=== PATIENT | male | born 1980 | race Caucasian/White ===

== ENCOUNTER 2018-11-16 20:20 | Emergency (ER) | payer BC ==
[2018-11-16 20:41] VITALS: BP 131/72; PULSE 72; RESP 20; TEMP 97.8
[2018-11-16] MEDS ORDERED: MORPHINE SULFATE 4 MG/ML SYRINGE IM STA (20:43)
--- NOTE | 2018-11-16 20:57 | ED ---
Lower Extremity Injury HPI - General Chief Complaint: Extremity Injury, Lower Stated Complaint: Rt foot injury Time Seen by Provider: 11/16/18 20:42 Source: patient Mode of arrival: ambulatory Limitations: no limitations - History of Present Illness Initial Comments: 38-year-old male who denies past medical history presenting today for chief complaint of right calf pain. Patient states that he was attempting to run up a "manageable". When he felt a pop in his right calf. Patient states he thinks his Achilles broke. Patient states that he is able to move at the ankle however he is unable to walk on his toes. Patient states there is pain in his calf. Swelling of the posterior ankle. Patient states he is able to ambulate and weight-bear, patient denies any numbness tingling loss of sensation. Patient denies fall or head injury, patient denies a severe ankle or knee pain he denies pain to palpation of the foot. Remaining review of system negative, patient denies any recent fever, chills, shortness of breath, chest pain, back pain, abdominal pain, nausea or vomiting, numbness or tingling, dysuria or hematuria, constipation or diarrhea, headaches or visual changes, or any other complaints. Upon arrival patient appears well no signs of acute distress. - Related Data Home Medications Medication Instructions Recorded Confirmed No Known Home Medications 11/16/18 11/16/18 Allergies Allergy/AdvReac Type Severity Reaction Status Date / Time No Known Allergies Allergy Verified 11/16/18 20:41 Review of Systems ROS Statement: Those systems with pertinent positive or pertinent negative responses have been documented in the HPI. ROS Other: All systems not noted in ROS Statement are negative. Past Medical History Past Medical History: No Reported History History of Any Multi-Drug Resistant Organisms: None Reported Past Surgical History: No Surgical Hx Reported Past Psychological History: No Psychological Hx Reported Smoking Status: Current every day smoker Past Alcohol Use History: Rare Past Drug Use History: None Reported General Exam - General Exam Comments Initial Comments: General: The patient is awake and alert, in no distress, and does not appear acutely ill. Eye: Pupils are equal, round and reactive to light, extra-ocular movements are intact. No nystagmus. There is normal conjunctiva bilaterally. No signs of icterus. Ears, nose, mouth and throat: There are moist mucous membranes and no oral lesions. Neck: The neck is supple, there is no tenderness or JVD. Cardiovascular: There is a regular rate and rhythm. No murmur, rub or gallop is appreciated. Respiratory: Lungs are clear to auscultation, respirations are non-labored, breath sounds are equal. No wheezes, stridor, rales, or rhonchi. Gastrointestinal: Soft, non-distended, non-tender abdomen without masses or organomegaly noted. There is no rebound or guarding present. No CVA tenderness. Bowel sounds are unremarkable. Musculoskeletal: Normal ROM, no tenderness. Strength 5/5. Sensation intact of the LE equal in comparison b/l. DP pulses equal bilaterally 2+. Anderson sign is not intact. There is bogginess over the Achilles distal attachment site. No palpable cord. Pain to palpation of the mid calf with swelling. No pain to palpation of the forefoot lateral or medial malleolus. Patient is able to fully range at the ankle without difficulty. No pain to palpation of the proximal tibia-fibula. Compartments soft and compressible Neurological: A&O x 3. CN II-XII intact, There are no obvious motor or sensory deficits. Coordination appears grossly intact. Speech is normal. Skin: Skin is warm and dry and no rashes or lesions are noted. Psychiatric: Cooperative, appropriate mood & affect, normal judgment. Limitations: no limitations Course Vital Signs 11/16/18 20:36 Temperature 97.8 F Pulse Rate 72 Respiratory 20 Rate Blood Pressure 131/72 O2 Sat by Pulse 98 Oximetry Medical Decision Making - Medical Decision Making 38-year-old presenting for right calf pain. Physical examination findings consistent with Achilles tendon tear, exam consistent with complete or near complete tear. Pt placed in splint holding foot in slightly plantar flexed position. Pt given RX for crutches and NWB instruction. Patient neurovascularly intact. Patient has no pain to palpation of ankle mortise, foot or knee. Given pain medication emergency department. Pt given orthopedic surgery f/u instruction, to f/u on Monday. Pt verbalized understanding of importance of f/u and NWB. She given starter pack for Tylenol No. 3 patient where all would risk involved denies questions at this time. Case discussed with attending provider Dr. Leyva prior to patient's discharge Disposition Clinical Impression: Achilles tendon rupture Disposition: HOME SELF-CARE Condition: Good Instructions (If sedation given, give patient instructions): Achilles Tendon Rupture (ED) Additional Instructions: Please use medication as discussed. Please follow-up with orthopedic surgery in the next 2-3 days, Monday is next business day. Please return to emergency room if the symptoms increase or worsen or for any other concerns. Is patient prescribed a controlled substance at d/c from ED?: No Referrals: None,Stated [Primary Care Provider] - 1-2 days Kfoi Ro MD [STAFF PHYSICIAN] - 1-2 days Time of Disposition: 20:57
[2018-11-16] MEDS ORDERED: ACET/COD 300 MG/30 MG STARTER PACK 6 TAB BTL PO STA (21:22)
== END 2018-11-16 21:31 | disposition home or self-care (01) ==
LOC: EC 20:20
DX: S86.011A Strain of right Achilles tendon, initial encounter (principal); F17.200 Nicotine dependence, unspecified, uncomplicated; X58.XXXA Exposure to other specified factors, initial encounter; Y93.02 Activity, running
CPT/HCPCS: 99283; 29515; 96372; J2270

== ENCOUNTER 2022-12-20 07:33 | Emergency (ER) | payer BC, OTHER ==
[2022-12-20 07:42] VITALS: TEMP 98
[2022-12-20] MEDS ORDERED: SODIUM CHLORIDE 0.9% 1,000 ML IV STA (08:06)
[2022-12-20] MEDS ORDERED: levETIRAcetam IV 1,000 MG in SALINE 1 100ML.BAG IVPB STA (08:06)
[2022-12-20 08:27] LABS: Basophils # (A) 0.1 k/uL (0-0.2); Basophils % (A) 0 %; Eosinophils # (A) 0.1 k/uL (0-0.7); Eosinophils % (A) 1 %; HGB 15.4 gm/dL (13.0-17.5); Lymphocytes # (A) 2.4 k/uL (1.0-4.8); Lymphocytes % (A) 21 %; MCH 31.9 pg (25.0-35.0); MCHC 34.2 g/dL (31.0-37.0); MCV 93.3 fL (80.0-100.0); Mean Platelet Volume 7.6; Monocytes # (A) 0.6 k/uL (0-1.0); Monocytes % (A) 5 %; Neutrophils % (A) 71 %; Platelet Count 224 k/uL (150-450); RBC 4.82 m/uL (4.30-5.90); RDW 12.9 % (11.5-15.5); WBC 11.3 k/uL (3.8-10.6)
--- NOTE | 2022-12-20 08:31 | ED ---
General Adult HPI - General Chief complaint: Seizure Stated complaint: Seizure Time Seen by Provider: 12/20/22 07:56 Source: patient, RN notes reviewed, old records reviewed Mode of arrival: ambulatory Limitations: no limitations - History of Present Illness Initial comments: Patient is a 42-year-old male who presents emergency department over concern for possible seizure. No history of seizures. No significant past medical history. States that he was driving to work this morning with a friend sitting in the passenger seat taking his coffee when he, according to the friend, suddenly tensed up and curling his arms in towards his chest and his neck rolled forward. He dropped his coffee on himself. He believes he passed out. There may have been some shaking per the patient's friend. Patient denies biting his tongue or having urinary incontinence or bowel incontinence. Patient states that the episode lasted 30 seconds to 1 minute. Following the episode, patient awoke and had some very mild confusion but quickly returned to baseline per patient. States he felt a little "dazed." This has happened one time previously last year and was worked up outpatient with his PCP and it was unremarkable. Presents today for further evaluation. Denies any recent head trauma. Denies injuring himself during the incident. Denies any falls. This on blood thinners. No history of hypertension. Denies any current chest pain, shortness of breath, abdominal pain, nausea, vomiting. Denies any fevers, chills, cough. Has no nausea or vomiting. His no other acute complaints at this time. Presents for further evaluation over a concern for seizure.Patient endorses smoking marijuana but denies any other drug use. Denies alcohol use. Endorses some tobacco use. - Related Data Home Medications Medication Instructions Recorded Confirmed No Known Home Medications 11/16/18 11/16/18 Allergies Allergy/AdvReac Type Severity Reaction Status Date / Time No Known Allergies Allergy Verified 12/20/22 09:23 Review of Systems ROS Statement: Those systems with pertinent positive or pertinent negative responses have been documented in the HPI. Review of Systems: CONST: Denies fever EYES: Denies blurry vision ENT: Denies nasal congestion C/V: Denies Chest pain RESP: Denies shortness of breath GI: Denies abdominal pain : Denies dysuria SKIN: Denies rash. MSK: Denies joint pain. NEURO: Denies headache ROS Other: All systems not noted in ROS Statement are negative. Past Medical History Past Medical History: No Reported History History of Any Multi-Drug Resistant Organisms: None Reported Past Surgical History: No Surgical Hx Reported Past Psychological History: No Psychological Hx Reported Smoking Status: Current every day smoker Past Alcohol Use History: Rare Past Drug Use History: Marijuana General Exam - General Exam Comments Initial Comments: General: Appears in no acute distress. HEAD: Normal with no signs of head trauma. Negative ashley sign. Negative raccoon eyes. EYES: PERRLA, EOMI, conjunctiva normal, no discharge. Pupils 3 mm and equal bilaterally. ENT: Hearing grossly intact, normal oropharynx. RESPIRATORY: Clear breath sounds bilaterally. No wheezes, rales, or rhonchi. C/V: Regular rate and rhythm. S1 and S2 auscultated,peripheral pulses 2+ and intact throughout ABD: Abd is soft, nontender, nondistended EXT: Normal range of motion, no obvious deformity SKIN: No rashes or lesions observed on exposed skin. NEURO: Alert and oriented x 4. Cranial nerves II-XII intact. No focal sensory or strength deficits. GCS of 15. NIH of 0. Cerebellar function intact as evident by normal finger to nose testing and [id number] testing. Limitations: no limitations Course Vital Signs 12/20/22 12/20/22 12/20/22 07:40 08:30 09:00 Temperature 98 F Pulse Rate 118 H 48 L 51 L Respiratory 16 18 18 Rate Blood Pressure 159/92 136/103 135/92 O2 Sat by Pulse 97 99 98 Oximetry 12/20/22 09:39 Temperature Pulse Rate 52 L Respiratory 18 Rate Blood Pressure 134/81 O2 Sat by Pulse 96 Oximetry Medical Decision Making - Medical Decision Making Was pt. sent in by a medical professional or institution (, PA, TECH[employer]IC[employer], urgent care, hospital, or detention...) When possible be specific @ -No Did you speak to anyone other than the patient for history (EMS, parent, family, police, friend...)? What history was obtained from this source @ -No Did you review nursing and triage notes (agree or disagree)? Why? @ -I reviewed and agree with nursing and triage notes Were old charts reviewed (outside hosp., previous admission, EMS record, old EKG, old radiological studies, urgent care reports/EKG's, detention records)? Report findings @ -No old charts were reviewed Differential Diagnosis (chest pain, altered mental status, abdominal pain women, abdominal pain men, vaginal bleeding, weakness, fever, dyspnea, syncope, headache, dizziness, GI bleed, back pain, seizure, CVA, palpatations, mental health, musculoskeletal)? @ -Differential Seizure: Recurrent seizure disorder, febrile seizure, alcohol withdrawal, stimulants, meningitis, encephalitis, intercranial hemorrhage, intracranial tumor, stroke, eclampsia, thyrotoxicosis, hypocalcemia, hyponatremia, hypernatremia, hypomagnesemia, psychogenic, this is not meant to be an all-inclusive list. EKG interpreted by me (3pts min.). @ -As above X-rays interpreted by me (1pt min.). @ -Chest x-ray shows no obvious acute cardiopulmonary process CT interpreted by me (1pt min.). @ -CT brain showed no obvious acute intracranial process U/S interpreted by me (1pt. min.). @ -None done What testing was considered but not performed or refused? (CT, X-rays, U/S, labs)? Why? @ -None What meds were considered but not given or refused? Why? @ -Offered the patient a dose of Keppra empirically which he declined at this time. Did you discuss the management of the patient with other professionals (professionals i.e. , PA, [employer], lab, RT, psych nurse, social problems specialist, beef ribber, teacher, procurement officer, block and case maker)? Give summary @ -No Was smoking cessation discussed for >3mins.? @ -No Was critical care preformed (if so, how long)? @ -No Were there social determinants of health that impacted care today? How? (H omelessness, low income, unemployed, alcoholism, drug addiction, transportation, low edu. Level, literacy, decrease access to med. care, fci, rehab)? @ -No Was there de-escalation of care discussed even if they declined (Discuss DNR or withdrawal of care, Hospice)? DNR status @ -No What co-morbidities impacted this encounter? (DM, HTN, Smoking, COPD, CAD, Cancer, CVA, ARF, Chemo, Hep., AIDS, mental health diagnosis, sleep apnea, morbid obesity)? @ -None Was patient admitted / discharged? Hospital course, mention meds given and route, prescriptions, significant lab abnormalities, going to OR and other pertinent info. @ -Based on the patient's presentation and physical exam, appears that the patient suffered either a syncopal episode versus possible seizure episode. We will obtain a seizure workup as well as CT brain, screening EKG. He has no acute complaints this time. Vital signs within acceptable limits. He was in agreement this plan. He'll be given a 1 L fluid bolus. He declines IV Keppra at this time. Patient's labs are remarkable for mild leukocytosis of 11.3 which is likely reactive. Patient is positive for marijuana and UDS. Lactic acid is within acceptable limits. Remainder the labs are within acceptable limits. EKG shows no signs of acute ischemia. Imaging is unremarkable. On reevaluation following observation, and having multiple hours since the incident, patient remains within acceptable limits. Vital signs are within acceptable limits. I discussed results with him. I have no clear evidence that he did experience a seizure earlier. It is been a syncopal episode. Diagnosis is uncertain at this time. I did offer him admission for reevaluation by neurology which she declined at this time. We'll follow up with PCP and neurologist outpatient. I do believe this is reasonable. He is alert and orien jamie 4 and able to make his own decisions and at his normal mental status baseline. Has had no subsequent seizure microcytic episodes. Neuro exam is unremarkable. He was in agreement this plan. Strict return precautions were discussed. I did advise them that the law states that if he did have a seizure today, he must be seizure free for [address] again and he expressed understanding. I instructed the patient to follow up with their PCP in the next 1-3 days. I e xplained that the patient should return to the emergency department if they experience any worsening symptoms. Strict return precautions were discussed with the patient. The patient expressed understanding of these instructions. I answered all questions that the patient had. The patient was discharged home in good condition with their prescriptions and follow up information. Undiagnosed new problem with uncertain prognosis? @ -No Drug Therapy requiring intensive monitoring for toxicity (Heparin, Nitro, Insulin, Cardizem)? @ -No Were any procedures done? @ -No Diagnosis/symptom? @ -Seizure versus syncope Acute, or Chronic, or Acute on Chronic? @ -Acute Uncomplicated (without systemic symptoms) or Complicated (systemic symptoms)? @ -Uncomplicated Side effects of treatment? @ -none Exacerbation, Progression, or Severe Exacerbation] @ -no Poses a threat to life or bodily function? @ -no - Lab Data Result diagrams: 12/20/22 08:14 12/20/22 08:14 Lab Results 12/20/22 12/20/22 12/20/22 Range/Units 08:05 08:14 08:14 WBC 11.3 H (3.8-10.6) k/uL RBC 4.82 (4.30-5.90) m/uL Hgb 15.4 (13.0-17.5) gm/dL Hct 45.0 (39.0-53.0) % MCV 93.3 (80.0-100.0) fL MCH 31.9 (25.0-35.0) pg MCHC 34.2 (31.0-37.0) g/dL RDW 12.9 (11.5-15.5) % Plt Count 224 (150-450) k/uL MPV 7.6 Neutrophils % 71 % Lymphocytes % 21 % Monocytes % 5 % Eosinophils % 1 % Basophils % 0 % Neutrophils # 8.0 H (1.3-7.7) k/uL Lymphocytes # 2.4 (1.0-4.8) k/uL Monocytes # 0.6 (0-1.0) k/uL Eosinophils # 0.1 (0-0.7) k/uL Basophils # 0.1 (0-0.2) k/uL Sodium (137-145) mmol/L Potassium (3.5-5.1) mmol/L Chloride (98-107) mmol/L Carbon Dioxide (22-30) mmol/L Anion Gap mmol/L BUN (9-20) mg/dL Creatinine (0.66-1.25) mg/dL Est GFR (CKD-EPI)AfAm (>60 ml/min/1.73 sqM) Est GFR (CKD-EPI)NonAf (>60 ml/min/1.73 sqM) Glucose (74-99) mg/dL POC Glucose (mg/dL) 144 H (70-110) mg/dL POC Glu Applications Architect ID Sabas Coleman Plasma Lactic Acid Rafael (0.7-2.0) mmol/L Calcium (8.4-10.2) mg/dL Magnesium (1.6-2.3) mg/dL Total Bilirubin (0.2-1.3) mg/dL AST (17-59) U/L ALT (4-49) U/L Alkaline Phosphatase (38-126) U/L Total Protein (6.3-8.2) g/dL Albumin (3.5-5.0) g/dL Urine Color Yellow Urine Appearance Clear (Clear) Urine pH 5.5 (5.0-8.0) Ur Specific [place] 1.017 (1.001-1.035) Urine Protein Negative (Negative) Urine Glucose (UA) Negative (Negative) Urine Ketones Negative (Negative) Urine Blood Negative (Negative) Urine Nitrite Negative (Negative) Urine Bilirubin Negative (Negative) Urine Urobilinogen <2.0 (<2.0) mg/dL Ur Leukocyte Esterase Trace H (Negative) Urine WBC 4 (0-5) /hpf Urine Mucus Rare H (None) /hpf Urine Opiates Screen Not Detected (NotDetected) Ur Oxycodone Screen Not Detected (NotDetected) Urine Methadone Screen Not Detected (NotDetected) Ur Propoxyphene Screen Not Detected (NotDetected) Ur Barbiturates Screen Not Detected (NotDetected) U Tricyclic Antidepress Not Detected (NotDetected) Ur Phencyclidine Scrn Not Detected (NotDetected) Ur Amphetamines Screen Not Detected (NotDetected) U Methamphetamines Scrn Not Detected (NotDetected) U Benzodiazepines Scrn Not Detected (NotDetected) Urine Cocaine Screen Not Detected (NotDetected) U Marijuana (THC) Screen Detected H (NotDetected) 12/20/22 12/20/22 Range/Units 08:14 08:14 WBC (3.8-10.6) k/uL RBC (4.30-5.90) m/uL Hgb (13.0-17.5) gm/dL Hct (39.0-53.0) % MCV (80.0-100.0) fL MCH (25.0-35.0) pg MCHC (31.0-37.0) g/dL RDW (11.5-15.5) % Plt Count (150-450) k/uL MPV Neutrophils % % Lymphocytes % % Monocytes % % Eosinophils % % Basophils % % Neutrophils # (1.3-7.7) k/uL Lymphocytes # (1.0-4.8) k/uL Monocytes # (0-1.0) k/uL Eosinophils # (0-0.7) k/uL Basophils # (0-0.2) k/uL Sodium 139 (137-145) mmol/L Potassium 4.2 (3.5-5.1) mmol/L Chloride 108 H (98-107) mmol/L Carbon Dioxide 21 L (22-30) mmol/L Anion Gap 10 mmol/L BUN 13 (9-20) mg/dL Creatinine 0.79 (0.66-1.25) mg/dL Est GFR (CKD-EPI)AfAm >90 (>60 ml/min/1.73 sqM) Est GFR (CKD-EPI)NonAf >90 (>60 ml/min/1.73 sqM) Glucose 146 H (74-99) mg/dL POC Glucose (mg/dL) (70-110) mg/dL POC Glu Applications Architect ID Plasma Lactic Acid Rafael 1.5 (0.7-2.0) mmol/L Calcium 9.1 (8.4-10.2) mg/dL Magnesium 2.1 (1.6-2.3) mg/dL Total Bilirubin 0.4 (0.2-1.3) mg/dL AST 21 (17-59) U/L ALT 24 (4-49) U/L Alkaline Phosphatase 84 (38-126) U/L Total Protein 7.1 (6.3-8.2) g/dL Albumin 4.2 (3.5-5.0) g/dL Urine Color Urine Appearance (Clear) Urine pH (5.0-8.0) Ur Specific [place] (1.001-1.035) Urine Protein (Negative) Urine Glucose (UA) (Negative) Urine Ketones (Negative) Urine Blood (Negative) Urine Nitrite (Negative) Urine Bilirubin (Negative) Urine Urobilinogen (<2.0) mg/dL Ur Leukocyte Esterase (Negative) Urine WBC (0-5) /hpf Urine Mucus (None) /hpf Urine Opiates Screen (NotDetected) Ur Oxycodone Screen (NotDetected) Urine Methadone Screen (NotDetected) Ur Propoxyphene Screen (NotDetected) Ur Barbiturates Screen (NotDetected) U Tricyclic Antidepress (NotDetected) Ur Phencyclidine Scrn (NotDetected) Ur Amphetamines Screen (NotDetected) U Methamphetamines Scrn (NotDetected) U Benzodiazepines Scrn (NotDetected) Urine Cocaine Screen (NotDetected) U Marijuana (THC) Screen (NotDetected) - EKG Data -: EKG Interpreted by Me EKG Comments: 12-lead Electrocardiogram Interpretation Note EKG was reviewed and interpreted by myself. 12-lead ECG performed at 0813 is interpreted by me as revealing sinus bradycardia at a rate of 55 beats per minute. [place] is normal. SD interval is 168 ms, QRS duration is 95 ms, QTc is 427 ms.. There were no ST or T wave abnormalities to suggest myocardial ischemia or injury. R wave progression across the precordium was satisfactory. By my interpretation this EKG is non-diagnostic for acute ischemia. Disposition Clinical Impression: Syncope Disposition: HOME SELF-CARE Condition: Good Instructions (If sedation given, give patient instructions): Seizure/Epilepsy Discharge Instructions & Follow-Up, Syncope (ED), New-Onset Seizure in Adults (ED) Is patient prescribed a controlled substance at d/c from ED?: No Referrals: None,Stated [Primary Care Provider] - 1-2 days Maite Renee MD [REFERRING] - 1-2 days Time of Disposition: 09:10
[2022-12-20 08:38] LABS: Glucose,Whole Blood 144 mg/dL (70-110)
[2022-12-20 08:41] LABS: Appearance,Urine Clear (Clear); Bilirubin,Urine Negative (Negative); Blood,Urine Negative (Negative); Color,Urine Yellow; Glucose,Urine (UA) Negative (Negative); Ketones,Urine Negative (Negative); Leukocyte Esterase,Urine Trace (Negative); Mucus,Urine Rare /hpf; Nitrite,Urine Negative (Negative); PH, Urine 5.5 (5.0-8.0); Protein,Urine Negative (Negative); Specific Gravity,Urine 1.017 (1.001-1.035); Urobilinogen,Urine <2.0 mg/dL (<2.0); WBC,Urine 4 /hpf (0-5)
[2022-12-20 08:42] LABS: Amphetamine Screen,Urine Not Detected (NotDetected); Barbiturate Screen,Urine Not Detected (NotDetected); Benzodiazepines Screen,Urine Not Detected (NotDetected); Cocaine Screen,Urine Not Detected (NotDetected); Methadone Screen, Urine Not Detected (NotDetected); Opiate Screen,Urine Not Detected (NotDetected); Oxycodone Screen, Urine Not Detected (NotDetected); Phencyclidine Screen,Urine Not Detected (NotDetected); Tricyclic Antidepressant,Urine Not Detected (NotDetected); Urn Cannabinoid Scrn Detected (NotDetected)
[2022-12-20 08:49] LABS: ALT 24 U/L (4-49); AST 21 U/L (17-59); African American GFR (CKD) >90 (>60 ml/min/1.73 sqM); Albumin 4.2 g/dL (3.5-5.0); Alkaline Phosphatase 84 U/L (38-126); Anion Gap 10 mmol/L; Blood Urea Nitrogen 13 mg/dL (9-20); Calcium 9.1 mg/dL (8.4-10.2); Carbon Dioxide 21 mmol/L (22-30); Chloride 108 mmol/L (98-107); Glucose 146 mg/dL (74-99); Magnesium 2.1 mg/dL (1.6-2.3); Non-African American GFR(CKD) >90 (>60 ml/min/1.73 sqM); Potassium 4.2 mmol/L (3.5-5.1); Sodium 139 mmol/L (137-145); Total Bilirubin 0.4 mg/dL (0.2-1.3); Total Protein 7.1 g/dL (6.3-8.2)
--- NOTE | 2022-12-20 08:51 | CT ---
EXAMINATION TYPE: CT brain wo con DATE OF EXAM: 12/20/2022 COMPARISON: HISTORY: Seicure activity CT DLP: 1099.6 mGycm. Automated Exposure Control for Dose Reduction was Utilized. TECHNIQUE: CT scan of the head is performed without contrast. FINDINGS: There is no acute intracranial hemorrhage, mass effect, or midline shift identified. The ventricles and sulci are within normal limits in size. The globes are intact and the visualized sin uses are clear. Cerebellar tonsils low-lying position of the level foramen magnum. Sella turcica has a normal appeara nce. Calvarium intact. Orbits are symmetric. Sinuses are clear. IMPRESSION: No acute intracranial hemorrhage, mass effect, or midline shift is seen.
--- NOTE | 2022-12-20 08:58 | XR ---
EXAMINATION TYPE: XR chest 1V portable DATE OF EXAM: 12/20/2022 COMPARISON: NONE HISTORY: Chest pain TECHNIQUE: Single frontal view of the chest is obtained. FINDINGS: There is no focal air space opacity, pleural effusion, or pneumothorax seen. The cardiac silhouette size is within normal limits. The osseous structures are intact. IMPRESSION: 1. No acute process.
[2022-12-20 09:06] VITALS: RESP 18
[2022-12-20 09:40] VITALS: BP 134/81; PULSE 52
== END 2022-12-20 09:40 | disposition home or self-care (01) ==
LOC: EC 07:33
DX: R55 Syncope and collapse (principal); F17.200 Nicotine dependence, unspecified, uncomplicated; F12.90 Cannabis use, unspecified, uncomplicated
CPT/HCPCS: 36415; 70450; 71045; 80053; 80306; 81001; 83605; 83735; 85025; 93005; 99285

== ENCOUNTER 2024-12-27 15:21 | Emergency (ER) | payer OTHER ==
[2024-12-27 15:27] VITALS: RESP 18; TEMP 97.8
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
[2024-12-27 15:51] LABS: Basophils # (A) 0.04 10*3/uL (0.00-0.10); Basophils % (A) 0.4 %; Eosinophils # (A) 0.06 10*3/uL (0.04-0.35); Eosinophils % (A) 0.6 %; HCT 42.7 % (39.6-50.0); Lymphocytes # (A) 3.61 10*3/uL (0.90-5.00); Lymphocytes % (A) 36.1 %; MCH 31.5 pg (27.0-32.0); MCHC 35.1 g/dL (32.0-37.0); MCV 89.7 fL (80.0-97.0); Mean Platelet Volume 9.5 fL (9.5-12.2); Monocytes # (A) 0.88 10*3/uL (0.20-1.00); Monocytes % (A) 8.8 %; Neutrophils # (A) 5.38 10*3/uL (1.80-7.70); Neutrophils % (A) 53.9 %; Platelet Count 238 10*3/uL (140-440); RBC 4.76 10*6/uL (4.40-5.60); RDW 12.8 % (11.5-14.5); WBC 9.99 10*3/uL (4.50-10.00)
[2024-12-27 16:05] LABS: ALT 27 U/L (4-49); AST 30 U/L (17-59); African American GFR (CKD) >90 (>60 ml/min/1.73 sqM); Albumin 4.4 g/dL (3.5-5.0); Alcohol <10 mg/dL; Alkaline Phosphatase 94 U/L (38-126); Anion Gap 9 mmol/L; Blood Urea Nitrogen 17 mg/dL (9-20); Calcium 9.4 mg/dL (8.4-10.2); Carbon Dioxide 19 mmol/L (22-30); Chloride 108 mmol/L (98-107); Glucose 106 mg/dL (74-99); Non-African American GFR(CKD) >90 (>60 ml/min/1.73 sqM); Sodium 136 mmol/L (137-145); Total Bilirubin 0.9 mg/dL (0.2-1.3); Total Protein 7.3 g/dL (6.3-8.2)
[2024-12-27 16:24] VITALS: BP 135/94; PULSE 78
== END 2024-12-27 17:21 | disposition home or self-care (01) ==
LOC: EC 15:21
DX: R55 Syncope and collapse (principal); R00.1 Bradycardia, unspecified; F17.200 Nicotine dependence, unspecified, uncomplicated; V47.5XXA Car driver injured in collision with fixed or stationary object in traffic accident, initial encounter
CPT/HCPCS: 36415; 80053; 80320; 83605; 84484; 85025; 93005; 99284

== ENCOUNTER 2025-02-22 12:22 | Emergency (ER) | payer OTHER ==
[2025-02-22 12:35] VITALS: RESP 18
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
--- NOTE | 2025-02-22 13:29 | XR ---
EXAMINATION TYPE: XR knee complete LT, XR tibia fibula RT DATE OF EXAM: 02/22/2025 1:14 PM COMPARISON: None CLINICAL INDICATION: Male, 44 years old with history of pain; PHH, pain TECHNIQUE: XR knee complete LT, XR tibia fibula RT 2 views submitted. Frontal and lateral views of the tibia and fibula FINDINGS: No evidence of any acute osseous pathology or soft tissue swelling. Prepatellar soft tiss ue edema. IMPRESSION: No acute osseous pathology. [facility], , 02/22/2025 1:26 PM
[2025-02-22 14:29] VITALS: BP 142/76; PULSE 78; TEMP 98.3
== END 2025-02-22 14:29 | disposition home or self-care (01) ==
LOC: EC 12:22
DX: S83.92XA Sprain of unspecified site of left knee, initial encounter (principal); M79.661 Pain in right lower leg; Z87.891 Personal history of nicotine dependence; W22.8XXA Striking against or struck by other objects, initial encounter; Y99.0 Civilian activity done for income or pay
CPT/HCPCS: 99283